=== PATIENT | male | born 1975 | race Caucasian/White ===

== ENCOUNTER 2016-08-07 08:29 | Emergency (ER) | payer OTHER ==
[~2016-08-07] VITALS: Ht 167.6 cm; Wt 66.0 kg
[~2016-08-07 08:29] MED LIST: LAXATIVE OTC; LORA10TA7 PO; VARE1 PO
[2016-08-07 08:33] VITALS: BP 116/60; PULSE 67; RESP 17; TEMP 97.8; O2SAT 98
[2016-08-07] MEDS ORDERED: SODIUM CHLOR 0.9% 1000 ML INJ 1,000 ML IV SCH (08:49)
[2016-08-07] MEDS ORDERED: ONDANSETRON HCL 4 MG/2 ML VIAL IVP ONE (09:00)
[2016-08-07] MEDS ORDERED: MORPHINE SULFATE 4 MG/ML INJ IV PUSH ONE (09:00)
[2016-08-07] MEDS ORDERED: SODIUM CHLORIDE 0.9% FLUSH 10 ML FLUSH IV FLUSH PRN (09:00)
[2016-08-07 09:37] LABS: AUTOMATED NEUTROPHIL # 12.1 TH/MM3 (1.8-7.7); BASOPHIL % 0.3 % (0.0-2.0); EOSINOPHIL % 0.1 % (0.0-4.0); HEMATOCRIT 47.6 % (39.0-51.0); HEMO FLAGS DIFF FINAL; LYMPHOCYTE # 2.2 TH/MM3 (1.0-4.8); MEAN CELL VOLUME 92.6 FL (80.0-100.0); MEAN CORPUSCULAR HEMOGLOBIN 31.4 PG (27.0-34.0); MEAN CORPUSCULAR HGB CONC 33.9 % (32.0-36.0); MONO % 8.6 % (0.0-8.0); PLATELET COUNT 249 TH/MM3 (150-450); RED BLOOD COUNT 5.14 MIL/MM3 (4.50-5.90); RED CELL DISTRIBUTION WIDTH 12.4 % (11.6-17.2); WHITE BLOOD COUNT 15.7 TH/MM3 (4.0-11.0)
[2016-08-07 09:39] LABS: BLOOD, URINE SMALL (NEG); GLUCOSE,URINE NEG (NEG); KETONE, URINE NEG (NEG); MUCUS URINE FEW /lpf (OCC); NITRITE,URINE NEG (NEG); PH, URINE 5.5 (5.0-8.5); URINE COLOR YELLOW (YELLW/STRAW)
[2016-08-07 09:40] LABS: COMMENT (UR) CULT NOT INDICATED; CULTURE IF INDICATED CULT NOT INDICATED
[2016-08-07 09:53] VITALS: O2SAT 99
[2016-08-07] MEDS ORDERED: VERA240T16 PO (09:57)
[2016-08-07 09:58] LABS: ANION GAP 9 MEQ/L (5-15); AST (GOT) 36 U/L (15-37); BICARBONATE 25.2 MEQ/L (21.0-32.0); BLOOD UREA NITROGEN 19 MG/DL (7-18); CHLORIDE 103 MEQ/L (98-107); GLOMERULAR FILTRATION RATE 57 ML/MIN (>89); POTASSIUM 5.2 MEQ/L (3.5-5.1); SODIUM (NA) 137 MEQ/L (136-145)
[2016-08-07 10:00] LABS: ALKALINE PHOSPHATASE 101 U/L (45-117); ALT (GPT) 51 U/L (12-78); TOTAL BILIRUBIN ADULT 0.8 MG/DL (0.2-1.0)
[2016-08-07 10:04] VITALS: BP 123/72; PULSE 50; RESP 18; O2SAT 97
--- NOTE | 2016-08-07 10:08 | PD ---
HPI Chief Complaint: Abdominal Pain Time Seen by Provider: 08:46 Travel History International Travel<30 days: No Contact w/Intl Traveler<30days: No Traveled to known affect area: No History of Present Illness HPI Patient is a pleasant 40-year-old male with previous appendectomy presents the emergency department with complaint of abdominal pain. Starting last night at approximately 10 PM patient noticed right sided abdominal pain. This is greatest right upper quadrant. Radiates slightly into the back. Patient states that it feels similar to when he had appendicitis. He states he cannot find a comfortable position. He had one episode of emesis this morning, no associated nausea. Patient denies any urinary symptoms, bowel symptoms. No history of hepatobiliary pathology, pancreatitis, ureterolithiasis. Patient states that the bumps in the road here bothered him. PFSH Past Medical History Cardiovascular Problems: Yes (HBP) Past Surgical History Appendectomy: Yes Other Surgery: Yes (VASECTOMY) Social History Alcohol Use: No Tobacco Use: No Substance Use: Yes (MARIJUANA OCCASSIONALLY) Allergies-Medications (Allergen,Severity, Reaction): Coded Allergies: No Known Allergies (Verified Allergy, Mild, 06/20/07) Reported Meds & Prescriptions Reported Meds & Active Scripts Active Reported Verapamil SR (Verapamil HCl) 240 Mg Tab 240 Mg PO BID Review of Systems Except as stated in HPI: all other systems reviewed are Neg Physical Exam Narrative GENERAL: Uncomfortable appearing male holding right side abdomen SKIN: Focused skin assessment warm/dry. HEAD: Normocephalic. EYES: Pupils equal and round. No scleral icterus. No injection or drainage. ENT: No nasal bleeding or discharge. Mucous membranes pink and moist. NECK: Supple CARDIOVASCULAR: Regular rate and rhythm. RESPIRATORY: No accessory muscle use. Clear to auscultation. Breath sounds equal bilaterally. GASTROINTESTINAL: Abdomen soft, right upper quadrant and right sided CVA tenderness without rebound or guarding MUSCULOSKELETAL: Normal gait NEUROLOGICAL: Awake and alert. Normal speech. PSYCHIATRIC: Appropriate mood and affect; insight and judgment normal. Data Data Last Documented VS Vital Signs Date Time Temp Pulse Resp B/P Pulse Ox O2 Delivery O2 Flow Rate FiO2 08/07/16 10:04 50 18 123/72 97 Room Air 08/07/16 08:33 97.8 Orders Complete Blood Count With Diff (08/07/16 08:49) Comprehensive Metabolic Panel (08/07/16 08:49) Lipase (4/24/17 08:49) Iv Access Insert/Monitor (08/07/16 08:49) Ecg Monitoring (08/07/16 08:49) Oximetry (08/07/16 08:49) Morphine Inj (Morphine Inj) (08/07/16 09:00) Ondansetron Inj (Zofran Inj) (08/07/16 09:00) Sodium Chlor 0.9% 1000 Ml Inj (Ns 1000 M (08/07/16 08:49) Sodium Chloride 0.9% Flush (Ns Flush) (08/07/16 09:00) Ed Poc Ultrasound (08/07/16 08:49) Urinalysis - C+S If Indicated (08/07/16 08:57) Ct Abd/Pel W/O Iv Contrast (08/07/16 08:57) Morphine Inj (Morphine Inj) (08/07/16 10:15) Oxycodone-Acetamin 5-325 Mg (Percocet (08/07/16 10:30) Labs Laboratory Tests Test 08/07/16 09:12 White Blood Count 15.7 TH/MM3 Red Blood Count 5.14 MIL/MM3 Hemoglobin 16.1 GM/DL Hematocrit 47.6 % Mean Corpuscular Volume 92.6 FL Mean Corpuscular Hemoglobin 31.4 PG Mean Corpuscular Hemoglobin 33.9 % Concent Red Cell Distribution Width 12.4 % Platelet Count 249 TH/MM3 Mean Platelet Volume 9.0 FL Neutrophils (%) (Auto) 77.0 % Lymphocytes (%) (Auto) 14.0 % Monocytes (%) (Auto) 8.6 % Eosinophils (%) (Auto) 0.1 % Basophils (%) (Auto) 0.3 % Neutrophils # (Auto) 12.1 TH/MM3 Lymphocytes # (Auto) 2.2 TH/MM3 Monocytes # (Auto) 1.4 TH/MM3 Eosinophils # (Auto) 0.0 TH/MM3 Basophils # (Auto) 0.0 TH/MM3 CBC Comment DIFF FINAL Differential Comment Urine Color YELLOW Urine Turbidity CLEAR Urine pH 5.5 Urine Specific [place] 1.012 Urine Protein NEG mg/dL Urine Glucose (UA) NEG mg/dL Urine Ketones NEG mg/dL Urine Occult Blood SMALL Urine Nitrite NEG Urine Bilirubin NEG Urine Urobilinogen LESS THAN 2.0 MG/DL Urine Leukocyte Esterase NEG Urine RBC 2 /hpf Urine WBC 1 /hpf Urine Mucus FEW /lpf Microscopic Urinalysis Comment CULT NOT INDICATED Sodium Level 137 MEQ/L Potassium Level 5.2 MEQ/L Chloride Level 103 MEQ/L Carbon Dioxide Level 25.2 MEQ/L Anion Gap 9 MEQ/L Blood Urea Nitrogen 19 MG/DL Creatinine 1.39 MG/DL Estimat Glomerular Filtration 57 ML/MIN Rate Random Glucose 97 MG/DL Calcium Level 9.6 MG/DL Total Bilirubin 0.8 MG/DL Aspartate Amino Transf 36 U/L (AST/SGOT) Alanine Aminotransferase 51 U/L (ALT/SGPT) Alkaline Phosphatase 101 U/L Total Protein 8.3 GM/DL Albumin 4.7 GM/DL Lipase 55 U/L MDM Medical Decision Making Medical Screen Exam Complete: Yes Emergency Medical Condition: Yes Medical Record Reviewed: Yes Differential Diagnosis 40-year-old male with history of previous appendectomy here with right sided flank pain since last night with episode of emesis. The right sided upper quadrant and CVA tenderness on exam. Differential includes hepatobiliary pathology, ureterolithiasis, pancreatitis, right sided diverticulitis or colitis. Narrative Course Patient placed on monitor, IV established and blood obtained. Bedside ultrasound showing hydronephrosis on the right. Patient given morphine, Zofran , IV fluids. CBC, CMP, lipase, urinalysis obtained and notable for small amount of blood. BUN 19, creatinine 1.39. WBC 15.7. CT abdomen and pelvis showed a 2 mm stone in the right ureterovesicular junction with mild hydronephrosis. Patient given additional morphine, Percocet. [place] improved and discharged home with symptomatic management. Procedures Procedure Narrative Patient consented to bedside ultrasound. Curvilinear probe used in the right upper quadrant and right flank revealing evidence of hydronephrosis but the gallbladder itself appears unremarkable with no evidence of stone, wall thickening, pericholecystic fluid. Diagnosis Primary Impression: Ureterolithiasis Referrals: Ermias Rdz MD call for appointment Additional Instructions: Nausea and pain medications as needed. Follow-up with urologist as discussed. Med/Other Pt SpecificInfo: Prescription(s) given Scripts Ondansetron Odt (Zofran Odt)8 Mg Tab8 Mg SL Q8H PRN (NAUSEA OR VOMITING) #10 TAB Ref 0 Prov:Elissa Wellington MD 08/07/16 Oxycodone-Acetaminophen (Percocet)5-325 mg Tab1-2 Tab PO Q4H PRN (PAIN) #25 TAB Ref 0 Prov:Elissa Wellington MD 08/07/16 Disposition: 01 DISCHARGE HOME Condition: Stable Elissa Wellington MD Aug 07, 2016 10:08
--- NOTE | 2016-08-07 10:11 | RADRPT ---
EXAM DATE/TIME: 08/07/2016 09:45 [facility] COMPARISON: No previous studies available for comparison. INDICATIONS : Patient has right lower quadrant pain with nausea since last night. ORAL CONTRAST: No oral contrast ingested. RADIATION DOSE: 5.47 CTDIvol (mGy) MEDICAL HISTORY : Cardiovascular disease. SURGICAL HISTORY : ENCOUNTER: Initial ACUITY: 1 day PAIN SCALE: 4/10 LOCATION: Right upper quadrant TECHNIQUE: Volumetric scanning of the abdomen and pelvis was performed. Using automated exposure control and ad justment of the mA and/or kV according to patient size, radiation dose was kept as low as reasonably achievable to obtain optimal diagnostic quality images. FINDINGS: LOWER LUNGS: The visualized lower lungs are clear. LIVER: Homogeneous density without lesion. There is no dilation of the biliary tree. No calcified gallston es. SPLEEN: Normal size without lesion. PANCREAS: Within normal limits. KIDNEYS: Normal in size and shape. There are tiny 1 mm nonobstructing bilateral renal calculi. There is mild right hydronephrosis with mild prominence of portions of the right ureter. There is a distal right ur eteral calculus at the level of the ureterovesicular junction. This measures 2 mm in size. ADRENAL GLANDS: Within normal limits. VASCULAR: There is no aortic aneurysm. BOWEL/MESENTERY: The stomach, small bowel, and colon demonstrate no acute abnormality. There is no free intraperitone al air or fluid. ABDOMINAL WALL: Within normal limits. RETROPERITONEUM: There is no lymphadenopathy. BLADDER: No wall thickening or mass. REPRODUCTIVE: Within normal limits. INGUINAL: There is no lymphadenopathy or hernia. MUSCULOSKELETAL: Within normal limits for patient age. CONCLUSION: 1. Distal right ureteral calculus at the level of the ureterovesicular junction measuring 2 mm in si ze with mild right hydronephrosis. 2. Tiny bilateral renal calculi. Michael Damon MD on August 07, 2016 at 10:06 Board Certified Radiologist. This report was verified electronically.
[2016-08-07] MEDS ORDERED: MORPHINE SULFATE 8 MG/ML INJ IV PUSH ONE (10:15)
[2016-08-07] MEDS ORDERED: PERC5TAB12 PO (10:25)
[2016-08-07] MEDS ORDERED: ZOFR8TAB4 SL (10:25)
[2016-08-07] MEDS ORDERED: oxyCODONE/ACETAMINOPHEN 5 MG/325 MG TAB PO ONE (10:30)
[2016-08-07 11:10] VITALS: BP 149/85
== END 2016-08-07 11:28 | disposition home or self-care (01) ==
LOC: NEPE 08:29
DX: N20.1 Calculus of ureter (principal); N20.0 Calculus of kidney
CPT/HCPCS: 74176; 80053; 81001; 83690; 85025; 96374; 96375; 96376; 99284; J2270; J2405; J7030

== ENCOUNTER 2017-01-24 10:42 | Inpatient (IN) | payer OTHER ==
[~2017-01-24] VITALS: Ht 165.1 cm; Wt 70.0 kg
[~2017-01-24 10:42] MED LIST changes: -LAXATIVE OTC; -LORA10TA7 PO; +PERC5TAB12 PO; -VARE1 PO; +VERA240T16 PO; +ZOFR8TAB4 SL
[2017-01-24 10:52] VITALS: BP 118/57; PULSE 59; RESP 20
[2017-01-24] MEDS ORDERED: HYDROmorphone HCL PF 1 MG/ML VIAL IV PUSH ONE ×3 (11:00→15:15)
[2017-01-24] MEDS ORDERED: ONDANSETRON HCL 4 MG/2 ML VIAL IV PUSH ONE (11:00)
[2017-01-24] MEDS ORDERED: ceFAZolin 2 GM PREMIX 50 ML IV ONE (11:00)
[2017-01-24] MEDS ORDERED: GENTAMICIN INJ 80 MG in SODIUM CHLORIDE 0.9% INJ 100 ML IV ONE (11:00)
[2017-01-24] MEDS ORDERED: SODIUM CHLORIDE 0.9% FLUSH 10 ML FLUSH IVF PRN (11:00)
--- NOTE | 2017-01-24 11:05 | PD ---
HPI Chief Complaint: hand pain, foot pain. Time Seen by Provider: 10:50 Travel History International Travel<30 days: No Contact w/Intl Traveler<30days: No History of Present Illness HPI patient is a 41-year-old male presents emergency department for evaluation of deep laceration to left long finger as well as lacerations to the left foot. Patient states he was cleaning a large outdoor fountain when part of the found collapsed hit him in the chest and then ultimately landed on his left foot. He states he fell off the found approximately 6 feet onto the ground. Denies any head neck back injury. Symptoms started just prior to arrival, severe pain, nonradiating, associated with fall, minimally better after morphine he received in the ambulance on the way here. PFSH Past Medical History Cardiovascular Problems: Yes (HBP) Past Surgical History Appendectomy: Yes Other Surgery: Yes (VASECTOMY) Social History Alcohol Use: No Tobacco Use: Yes Substance Use: Yes (MARIJUANA OCCASSIONALLY) Allergies-Medications (Allergen,Severity, Reaction): Coded Allergies: No Known Allergies (Verified , 01/24/17) Reported Meds & Prescriptions Reported Meds & Active Scripts Active Reported Verapamil SR (Verapamil HCl) 240 Mg Tab 240 Mg PO BID Review of Systems Except as stated in HPI: all other systems reviewed are Neg Physical Exam Narrative GENERAL: Well-developed well-nourished 41-year-old male in some discomfort. SKIN: Focused skin assessment warm/dry. Patient has a deep avulsion injury on the palmar aspect of the the left long finger at the crease between the proximal phalanx and the metacarpal. There is bone exposed. There are several abrasions on the anterior chest wall without contusion or laceration. HEAD: Atraumatic. Normocephalic. EYES: Pupils equal and round. No scleral icterus. No injection or drainage. ENT: No nasal bleeding or discharge. Mucous membranes pink and moist. NECK: Trachea midline. No JVD. CARDIOVASCULAR: Regular rate and rhythm. No murmur appreciated. RESPIRATORY: No accessory muscle use. Clear to auscultation. Breath sounds equal bilaterally. GASTROINTESTINAL: Abdomen soft, non-tender, nondistended. Hepatic and splenic margins not palpable. MUSCULOSKELETAL: No clubbing. No edema. The patient's finger is locked in extension and he is unable to flex at the PIP or the DIP. He has brisk cap refill distally. In all 10 digits of the upper extremities. No injury at the wrists elbows shoulders. No midline CT or L-spine tenderness. Pelvis is stable. On the dorsal aspect of the left foot, there is an obvious fracture of what appears to be the middle phalanx on the middle toe. There are some also a laceration between the fourth and fifth metatarsals and the third and fourth metatarsals both of which are through the dermis. NEUROLOGICAL: Awake and alert. No obvious cranial nerve deficits. Motor grossly within normal limits. Normal speech. PSYCHIATRIC: Appropriate mood and affect; insight and judgment normal. Data Data Last Documented VS Vital Signs Date Time Temp Pulse Resp B/P (MAP) Pulse Ox O2 Delivery O2 Flow Rate FiO2 01/24/17 12:25 98.1 59 22 133/73 (93) 100 Room Air Orders Orders Ct Thorax/ Chest W Iv Contrast (01/24/17 ) Ct Abd/Pel W Iv Contrast(Rout) (01/24/17 ) Hand, Complete ([id number]) (01/24/17 ) Foot, Complete ([id number]) (01/24/17 ) Electrocardiogram (01/24/17 10:56) Basic Metabolic Panel (Bmp) (01/24/17 10:56) Complete Blood Count With Diff (01/24/17 10:56) Prothrombin Time / Inr (Pt) (01/24/17 10:56) Act Partial Throm Time (Ptt) (01/24/17 10:56) Chest, Single Ap (01/24/17 10:56) Ecg Monitoring (01/24/17 10:56) Iv Access Insert/Monitor (01/24/17 10:56) Oximetry (01/24/17 10:56) Oxygen Administration (01/24/17 10:56) Sodium Chloride 0.9% Flush (Ns Flush) (01/24/17 11:00) Hydromorphone Pf Inj (Dilaudid Pf Inj) (01/24/17 11:00) Ondansetron Inj (Zofran Inj) (01/24/17 11:00) Cefazolin 2 Gm Premix (Ancef 2 Gm Premix (01/24/17 11:00) Gentamicin Inj (Gentamicin Inj) (01/24/17 11:00) Ct Brain W/O Iv Contrast(Rout) (01/24/17 ) Ct Cerv Spine W/O Contrast (01/24/17 ) Fzyi-Rdn-Gnlyhf (Booster) Inj (Boostrix (01/24/17 11:15) Diet Npo (01/24/17 Lunch) Hydromorphone Pf Inj (Dilaudid Pf Inj) (01/24/17 12:30) Iohexol 350 Inj (Omnipaque 350 Inj) (01/24/17 12:18) Labs Laboratory Tests Test 01/24/17 11:30 White Blood Count 11.4 TH/MM3 Red Blood Count 4.70 MIL/MM3 Hemoglobin 14.7 GM/DL Hematocrit 44.6 % Mean Corpuscular Volume 94.8 FL Mean Corpuscular Hemoglobin 31.3 PG Mean Corpuscular Hemoglobin Concent 33.0 % Red Cell Distribution Width 12.5 % Platelet Count 231 TH/MM3 Mean Platelet Volume 8.8 FL Neutrophils (%) (Auto) 59.2 % Lymphocytes (%) (Auto) 31.9 % Monocytes (%) (Auto) 7.0 % Eosinophils (%) (Auto) 1.2 % Basophils (%) (Auto) 0.7 % Neutrophils # (Auto) 6.7 TH/MM3 Lymphocytes # (Auto) 3.6 TH/MM3 Monocytes # (Auto) 0.8 TH/MM3 Eosinophils # (Auto) 0.1 TH/MM3 Basophils # (Auto) 0.1 TH/MM3 CBC Comment DIFF FINAL Differential Comment Prothrombin Time 11.1 SEC Prothromb Time International Ratio 1.0 RATIO Activated Partial Thromboplast Time 24.6 SEC Blood Urea Nitrogen 16 MG/DL Creatinine 0.98 MG/DL Random Glucose 97 MG/DL Calcium Level 8.5 MG/DL Sodium Level 138 MEQ/L Potassium Level 3.8 MEQ/L Chloride Level 106 MEQ/L Carbon Dioxide Level 24.1 MEQ/L Anion Gap 8 MEQ/L Estimat Glomerular Filtration Rate 84 ML/MIN MDM Medical Decision Making Medical Screen Exam Complete: Yes Emergency Medical Condition: Yes Differential Diagnosis Tendon injury, Vascular injury, Laceration injury, foot fracture, multiple trauma, chest injury. Narrative Course Patient roomed emergency department, does have some chest wall injury as well as a significant avulsion probable near amputation of the left long finger, was discussed immediately with Dr. Buchanan and we sent images of the laceration to him, he is planning for exploration this afternoon is waiting for OR time. The patient does have Refill brisk on arrival. Patient does not have any fracture, suspect hyperextension injury leading to soft tissue injury. Patient was reassessed several times by me and continued to have Refill which was the same as the remaining fingers. Patient also has fracture of the metatarsal on the middle digit of the left foot, as crush injury to the left phalanx. CT head neck chest abdomen and pelvis are negative. Patient was ultimately discussed with Dr. Kapoor for admission per Dr. Erasmo Ortega recommendations. At 1530 Dr. Buchanan arrived and he believes the patient may have disrupted both digital arteries to the left finger and recommends emergent transfer to [facility]. D/W Dr. Mata who accepted ER to ER. Diagnosis Primary Impression: Tendon laceration Additional Impression: Foot fracture, left Disposition: 70 TRANSFER TO OTHER FACILITY Condition: Stable Terrell Gonzalez MD Jan 24, 2017 11:05
[2017-01-24] MEDS ORDERED: DIPHTH/TETANUS/ACEL PERTUSSIS (BOOSTER) 0.5 ML VIAL/PFS IM ONE (11:15)
--- NOTE | 2017-01-24 11:43 | RADRPT ---
EXAM DATE/TIME: 01/24/2017 11:21 [facility] COMPARISON: No previous studies available for comparison. INDICATIONS : Chest pain. MEDICAL HISTORY : None. SURGICAL HISTORY : None. ENCOUNTER: Initial ACUITY: 1 day PAIN SCORE: 5/10 LOCATION: Left chest FINDINGS: A single view of the chest demonstrates the lungs to be symmetrically aerated without evidence of mas s, infiltrate or effusion. The cardiomediastinal contours are unremarkable. Osseous structures are intact. CONCLUSION: No acute disease. Raul Allison MD FACR on January 24, 2017 at 11:42 Board Certified Radiologist. This report was verified electronically.
--- NOTE | 2017-01-24 11:44 | RADRPT ---
EXAM DATE/TIME: 01/24/2017 11:23 [facility] COMPARISON: No previous studies available for comparison. INDICATIONS : Left hand laceration, dropped fountain on hand. MEDICAL HISTORY : None. SURGICAL HISTORY : None. ENCOUNTER: Initial ACUITY: 1 day PAIN SCORE: 10/10 LOCATION: Left hand, third digit FINDINGS: Laceration seen involving the third finger radiopaque foreign material without fracture. CONCLUSION: Laceration, radiopaque foreign material, negative for fracture. Raul Allison MD FACR on January 24, 2017 at 11:42 Board Certified Radiologist. This report was verified electronically.
--- NOTE | 2017-01-24 11:47 | RADRPT ---
EXAM DATE/TIME: 01/24/2017 11:25 [facility] COMPARISON: No previous studies available for comparison. INDICATIONS : Left foot pain, dropped fountain on foot. MEDICAL HISTORY : None. SURGICAL HISTORY : None. ENCOUNTER: Initial ACUITY: 1 day PAIN SCORE: 10/10 LOCATION: Left dorsal foot FINDINGS: Common fracture middle phalanx third toe. Second and fourth toes are intact. Fracture of the distal third metatarsal. CONCLUSION: Fracture of third toe and third metatarsal. Raul Allison MD FACR on January 24, 2017 at 11:45 Board Certified Radiologist. This report was verified electronically.
[2017-01-24 11:48] LABS: AUTOMATED NEUTROPHIL # 6.7 TH/MM3 (1.8-7.7); BASOPHIL # 0.1 TH/MM3 (0-0.2); BASOPHIL % 0.7 % (0.0-2.0); EOSINOPHIL # 0.1 TH/MM3 (0-0.4); EOSINOPHIL % 1.2 % (0.0-4.0); HEMATOCRIT 44.6 % (39.0-51.0); HEMO FLAGS DIFF FINAL; LYMPH % 31.9 % (9.0-44.0); LYMPHOCYTE # 3.6 TH/MM3 (1.0-4.8); MEAN CELL VOLUME 94.8 FL (80.0-100.0); MEAN CORPUSCULAR HEMOGLOBIN 31.3 PG (27.0-34.0); NEUT % 59.2 % (16.0-70.0); PLATELET COUNT 231 TH/MM3 (150-450); RED CELL DISTRIBUTION WIDTH 12.5 % (11.6-17.2); WHITE BLOOD COUNT 11.4 TH/MM3 (4.0-11.0)
--- NOTE | 2017-01-24 11:54 | RADRPT ---
EXAM DATE/TIME: 01/24/2017 11:44 [facility] COMPARISON: No previous studies available for comparison. INDICATIONS : Large object fell on patient RADIATION DOSE: 48.24 CTDIvol (mGy) MEDICAL HISTORY : Cardiovascular disease. SURGICAL HISTORY : Appendectomy. ENCOUNTER: Initial ACUITY: 1 day PAIN SCALE: 3/10 LOCATION: cranial TECHNIQUE: Multiple contiguous axial images were obtained of the head. Using automated exposure control and adj ustment of the mA and/or kV according to patient size, radiation dose was kept as low as reasonably a chievable to obtain optimal diagnostic quality images. DICOM format image data is available electro nically for review and comparison. FINDINGS: CEREBRUM: The ventricles are normal for age. No evidence of midline shift, mass lesion, hemorrhage or acute in farction. No extra-axial fluid collections are seen. POSTERIOR FOSSA: The cerebellum and brainstem are intact. The 4th ventricle is midline. The cerebellopontine angle i s unremarkable. EXTRACRANIAL: The visualized portion of the orbits is intact. SKULL: The calvaria is intact. No evidence of skull fracture. CONCLUSION: Negative for an acute process. Raul Allison MD FACR on January 24, 2017 at 11:51 Board Certified Radiologist. This report was verified electronically.
[2017-01-24 12:04] LABS: APTT (PATIENT) 24.6 SEC (24.3-30.1); BICARBONATE 24.1 MEQ/L (21.0-32.0); POTASSIUM 3.8 MEQ/L (3.5-5.1); PROTHROMBIN TIME - PATIENT 11.1 SEC (9.8-11.6)
--- NOTE | 2017-01-24 12:15 | RADRPT ---
EXAM DATE/TIME: 01/24/2017 11:44 [facility] COMPARISON: No previous studies available for comparison. INDICATIONS : Large object fell on patient. RADIATION DOSE: 21.50 CTDIvol (mGy) MEDICAL HISTORY : Cardiovascular disease. SURGICAL HISTORY : Appendectomy. ENCOUNTER: Initial ACUITY: 1 day PAIN SCALE: 3/10 LOCATION: neck TECHNIQUE: Volumetric scanning of the cervical spine was performed. Multiplanar reconstructions i n the sagittal, coronal and oblique axial planes were performed. Using automated exposure control a nd adjustment of the mA and/or kV according to patient size, radiation dose was kept as low as reason ably achievable to obtain optimal diagnostic quality images. DICOM format image data is available e lectronically for review and comparison. FINDINGS: VERTEBRAE: Normal vertebral body height. ALIGNMENT: No evidence of subluxation. C2-C3: The bony spinal canal is normal in size. No evidence of disc bulge or herniation. The neura l foramina are bilaterally patent. C3-C4: The bony spinal canal is normal in size. No evidence of disc bulge or herniation. The neura l foramina are bilaterally patent. C4-C5: The bony spinal canal is normal in size. No evidence of disc bulge or herniation. The neura l foramina are bilaterally patent. C5-C6: The bony spinal canal is normal in size. No evidence of disc bulge or herniation. The neura l foramina are bilaterally patent. C6-C7: The bony spinal canal is normal in size. No evidence of disc bulge or herniation. The neura l foramina are bilaterally patent. C7-T1: The bony spinal canal is normal in size. No evidence of disc bulge or herniation. The neura l foramina are bilaterally patent. CONCLUSION: Negative for acute traumatic injury. Raul Allison MD FACR on January 24, 2017 at 12:12 Board Certified Radiologist. This report was verified electronically.
--- NOTE | 2017-01-24 12:17 | RADRPT ---
EXAM DATE/TIME: 01/24/2017 11:52 [facility] COMPARISON: No previous studies available for comparison. INDICATIONS : Large object fell on patient. IV CONTRAST: 85 cc Omnipaque 350 (iohexol) IV ; Cumulative dose for multiple exams. ORAL CONTRAST: No oral contrast ingested. RADIATION DOSE: 10/15 CTDIvol (mGy) ; Combined studies - Thorax/Abdomen/Pelvis MEDICAL HISTORY : Cardiovascular disease. SURGICAL HISTORY : Appendectomy. ENCOUNTER: Initial ACUITY: 1 day PAIN SCALE: 3/10 LOCATION: Abdomen TECHNIQUE: Volumetric scanning of the abdomen and pelvis was performed. Using automated exposure control and ad justment of the mA and/or kV according to patient size, radiation dose was kept as low as reasonably achievable to obtain optimal diagnostic quality images. DICOM format image data is available electro nically for review and comparison. FINDINGS: LOWER LUNGS: The visualized lower lungs are clear. LIVER: Homogeneous density without lesion. There is no dilation of the biliary tree. No calcified gallston es. SPLEEN: Normal size without lesion. PANCREAS: Within normal limits. KIDNEYS: Normal in size and shape. There is no mass, stone or hydronephrosis. 2 mm stone left kidney. ADRENAL GLANDS: Within normal limits. VASCULAR: There is no aortic aneurysm. BOWEL/MESENTERY: The stomach, small bowel, and colon demonstrate no acute abnormality. There is no free intraperitone al air or fluid. ABDOMINAL WALL: Within normal limits. RETROPERITONEUM: There is no lymphadenopathy. BLADDER: No wall thickening or mass. REPRODUCTIVE: Within normal limits. INGUINAL: There is no lymphadenopathy or hernia. MUSCULOSKELETAL: Within normal limits for patient age. CONCLUSION: Negative for acute traumatic injury. Raul Allison MD FACR on January 24, 2017 at 12:14 Board Certified Radiologist. This report was verified electronically.
[2017-01-24] MEDS ORDERED: IOHEXOL 350 MG/ML 10 ML VIAL (for RAD DIAG) IVCONTRAST ONE (12:18)
--- NOTE | 2017-01-24 12:22 | RADRPT ---
EXAM DATE/TIME: 01/24/2017 11:52 [facility] COMPARISON: No previous studies available for comparison. INDICATIONS : Large object fell on patient. IV CONTRAST: 85 cc Omnipaque 350 (iohexol) IV ; Cumulative dose for multiple exams. RADIATION DOSE: 7.02 CTDIvol (mGy) ; Combined studies - Thorax/Abdomen/Pelvis MEDICAL HISTORY : Cardiovascular disease. SURGICAL HISTORY : Arthroscopy. ENCOUNTER: Initial ACUITY: 1 day PAIN SCALE: 3/10 LOCATION: chest TECHNIQUE: Volumetric scanning of the chest was performed. Using automated exposure control and adjustment of t he mA and/or kV according to patient size, radiation dose was kept as low as reasonably achievable to obtain optimal diagnostic quality images. DICOM format image data is available electronically for review and comparison. Follow-up recommendations for detected pulmonary nodules are based at a minimum on nodule size and pa tient risk factors according to Fleischner Society Guidelines. FINDINGS: LUNGS: There is no consolidation or pneumothorax. No concerning pulmonary nodule is visualized. PLEURA: There is no pleural thickening or pleural effusion. MEDIASTINUM: The heart and great vessels demonstrate no acute abnormality. There is no mediastinal or hilar lymph adenopathy. AXILLAE: Within normal limits. No lymphadenopathy. SKELETAL: Within normal limits for patient age. MISCELLANEOUS: The visualized upper abdominal organs demonstrate no acute abnormality. CONCLUSION: Negative for acute traumatic injury. Raul Allison MD FACR on January 24, 2017 at 12:20 Board Certified Radiologist. This report was verified electronically.
[2017-01-24 12:25] VITALS: BP 133/73; PULSE 59; RESP 22; TEMP 98.1; O2SAT 100
--- NOTE | 2017-01-24 14:24 | PD.CONS ---
History of Present Illness Service Podiatry Consult Requested By ED Reason for Consult L foot crush injury, possible open fracture/tendon exposed Primary Care Physician Carmelo Euceda MD Diagnoses: History of Present Illness 41-year-old male presents emergency department with L hand injury and crush injury and deep laceration to left dorsal foot. Patient states that this occurred around 10 a.m. He was cleaning a large outdoor fountain when part of the found collapsed hit him in the chest and then ultimately landed on his left foot. He states he fell off the fountain approximately 6 feet onto the ground. Denies any head neck back injury. Symptoms started just prior to arrival, severe pain, nonradiating, associated with fall, minimally better after morphine he received in the ambulance on the way here. Past Family Social History Allergies: Coded Allergies: No Known Allergies (Verified , 01/24/17) Past Medical History High blood pressure Past Surgical History Vasectomy Appendectomy Active Ordered Medications Current Medications Medications (Trade) Dose Ordered Sig/Amparo Route Start Time Stop Time Status Last Admin (NS Flush) 2 ml UNSCH PRN IVF 01/24/17 11:00 Social History Occasional marijuana Physical Exam Vital Signs Vital Signs Date Time Temp Pulse Resp B/P (MAP) Pulse Ox O2 Delivery O2 Flow Rate FiO2 01/24/17 12:25 98.1 59 22 133/73 (93) 100 Room Air 01/24/17 11:42 100 Room Air 01/24/17 10:52 59 20 118/57 (77) Physical Exam L dorsal foot with laceration at level of 4th MTP joint laterally, as well as small laceration to lateral base of 3rd toe. Not able to see bone with examination of the wound at this time, but examination is painful. Tendon visible at dorsal 4th MTP joint area. L 3rd toe flaccid distally, but with capillary refill and warm temperature to digit. Appears viable at this time Pulses palpable. Compartments soft. Sensation diminished to digits to light touch Laboratory Laboratory Tests Test 01/24/17 11:30 White Blood Count 11.4 Red Blood Count 4.70 Hemoglobin 14.7 Hematocrit 44.6 Mean Corpuscular Volume 94.8 Mean Corpuscular Hemoglobin 31.3 Mean Corpuscular Hemoglobin Concent 33.0 Red Cell Distribution Width 12.5 Platelet Count 231 Mean Platelet Volume 8.8 Neutrophils (%) (Auto) 59.2 Lymphocytes (%) (Auto) 31.9 Monocytes (%) (Auto) 7.0 Eosinophils (%) (Auto) 1.2 Basophils (%) (Auto) 0.7 Neutrophils # (Auto) 6.7 Lymphocytes # (Auto) 3.6 Monocytes # (Auto) 0.8 Eosinophils # (Auto) 0.1 Basophils # (Auto) 0.1 CBC Comment DIFF FINAL Differential Comment Prothrombin Time 11.1 Prothromb Time International Ratio 1.0 Activated Partial Thromboplast Time 24.6 Blood Urea Nitrogen 16 Creatinine 0.98 Random Glucose 97 Calcium Level 8.5 Sodium Level 138 Potassium Level 3.8 Chloride Level 106 Carbon Dioxide Level 24.1 Anion Gap 8 Estimat Glomerular Filtration Rate 84 Result Diagram: 01/24/17 1130 01/24/17 1130 Imaging Last 72 hours Impressions Chest X-Ray 01/24/17 1056 Signed Impressions: Service Date/Time: Tuesday, January 24, 2017 11:21 - CONCLUSION: No acute disease. Raul Allison MD FACR Head CT 01/24/17 0000 Signed Impressions: Service Date/Time: Tuesday, January 24, 2017 11:44 - CONCLUSION: Negative for an acute process. Raul Allison MD FACR Hand X-Ray 01/24/17 0000 Signed Impressions: Service Date/Time: Tuesday, January 24, 2017 11:23 - CONCLUSION: Laceration , radiopaque foreign material, negative for fracture. Raul Allison MD FACR Foot X-Ray 01/24/17 0000 Signed Impressions: Service Date/Time: Tuesday, January 24, 2017 11:25 - CONCLUSION: Fracture of third toe and third metatarsal. Raul Allison MD FACR Chest CT 01/24/17 0000 Signed Impressions: Service Date/Time: Tuesday, January 24, 2017 11:52 - CONCLUSION: Negative for acute traumatic injury. Raul Allison MD FACR Cervical Spine CT 01/24/17 0000 Signed Impressions: Service Date/Time: Tuesday, January 24, 2017 11:44 - CONCLUSION: Negative for acute traumatic injury. Raul Allison MD FACR Abdomen/Pelvis CT 01/24/17 0000 Signed Impressions: Service Date/Time: Tuesday, January 24, 2017 11:52 - CONCLUSION: Negative for acute traumatic injury. Raul Allison MD FACR Assessment and Plan Assessment and Plan L foot crush injury, displaced L 3rd metatarsal neck fracture, displaced L middle phalanx 3rd toe comminuted fracture complicated laceration to tendon/bone dorsal L foot To OR for debridement/irrigation L foot with possible ORIF vs pinning of L 3rd metatarsal and toe and laceration repair with Dr Rodrigez NPO now Consented and patient surgical site marked Jag Ayala DPM Jan 24, 2017 14:24
--- NOTE | 2017-01-24 14:47 | EKG ---
Date Performed: 01/24/2017 Time Performed: 11:27:09 PTAGE: 41 years EKG: SINUS BRADYCARDIA BORDERLINE ECG NO PREVIOUS TRACING DOCTOR: Prashant Augustine Interpretating Date/Time 01/24/2017 14:46:47
[2017-01-24] MEDS ORDERED: NALOXONE HCL 0.4 MG/ML AMP IV PUSH PRN (15:15)
[2017-01-24] MEDS ORDERED: SODIUM CHLORIDE 0.9% FLUSH 10 ML FLUSH IV FLUSH PRN (15:15)
[2017-01-24] MEDS ORDERED: MAGNESIUM HYDROXIDE SUSP 30 ML CUP PO PRN (15:15)
[2017-01-24] MEDS ORDERED: LACTULOSE SYRUP 20 GM/30 ML CUP PO PRN (15:15)
[2017-01-24] MEDS ORDERED: ACETAMINOPHEN 325 MG TAB PO PRN (15:15)
[2017-01-24] MEDS ORDERED: BISACODYL 10 MG SUPP RECTAL PRN (15:15)
[2017-01-24] MEDS ORDERED: ONDANSETRON HCL 4 MG/2 ML VIAL IVP PRN (15:15)
[2017-01-24] MEDS ORDERED: SENNOSIDES 8.6 MG TAB PO PRN (15:15)
[2017-01-24] MEDS ORDERED: BUPIVACAINE HCL PF 0.5% 30 ML VIAL ONE (15:18)
[2017-01-24] MEDS ORDERED: LIDOCAINE HCL 1% 50 ML VIAL ONE (15:18)
[2017-01-24] MEDS ORDERED: GENTAMICIN SULFATE 80 MG/2 ML VIAL ONE (15:51)
[2017-01-24] MEDS ORDERED: BUPIVACAINE HCL PF 0.25% 30 ML VIAL ONE (15:52)
[2017-01-24] MEDS ORDERED: SODIUM CHLOR 0.9% 1000 ML INJ 1,000 ML IV SCH (16:00)
[2017-01-24 16:17] VITALS: BP 118/72; PULSE 65; RESP 22; TEMP 98.5; O2SAT 100
--- NOTE | 2017-01-24 17:13 | RADRPT ---
EXAM DATE/TIME: 01/24/2017 13:55 [facility] COMPARISON: No previous studies available for comparison. INDICATIONS : Right foot pain and abrasion on anterior side of foot. MEDICAL HISTORY : None. SURGICAL HISTORY : None. ENCOUNTER: Initial ACUITY: 1 day PAIN SCORE: 5/10 LOCATION: Right foot FINDINGS: Soft tissue swelling is present over the dorsum of the foot. There is no evidence of acute fracture. Bony mineralization is normal. CONCLUSION: 1. There is no evidence of acute fracture. Carmelo Mendoza MD on January 24, 2017 at 17:12 Board Certified Radiologist. This report was verified electronically.
--- NOTE | 2017-01-24 20:57 | MB ---
cc: SOCORROADAIR DATE OF CONSULTATION 01/24/2017 REASON FOR CONSULTATION Crush injury left middle finger. HISTORY OF PRESENT ILLNESS The patient is a 41-year-old left-hand dominant male who presented to the ED with complaints of crushing injury to the left middle finger and left foot. The patient states he was cleaning a large outdoor fountain when part of the fountain collapsed and collapsed on the patient and resulting in multiple injuries. The patient complains of laceration involving the left middle finger. He also complains of multiple lacerations including the left foot. He also complains of numbness of the left middle finger and states he is unable to feel the left middle finger. He denies any difficulty breathing. Denies any loss of consciousness. PHYSICAL EXAMINATION GENERAL: On examination the patient is alert, oriented times three. DIRECTED EXAMINATION: Examination of left hand reveals dressing in place. Examination after removal of dressing reveals laceration over the volar aspect of the proximal phalanx region and the PIP joint region with flap of skin and soft tissues elevated from the volar surface of the proximal phalanx and the PIP joint. The laceration also extends dorsally on to the PIP joint. The finger appears dusky. He has capillary refill which is through it, over the middle finger region. Pulse ox does not pickling drum operator any waveforms. The patient has no sensation distal to the laceration. Digital artery, clotted distal artery noted over the proximal aspect of the laceration. The laceration extends from ulnar to radial aspect almost to the PIP joint. The PIP joint is exposed on the volar aspect. There is no evidence of bleeding from the pulp on to pinprick. The patient has no active flexion of the PIP or the DIP joint. He has no sensation distal to the laceration. He has intact extension of the PIP joint. There is evidence of foreign body material within the soft tissues. The laceration measures about 5 cm and the edges appeared to be jagged. IMAGING STUDIES X-rays of left middle finger was reviewed, shows evidence of soft tissue defect along the volar aspect of the proximal phalanx and evidence of foreign body within the soft tissues of the volar aspect of the finger. No evidence of fracture noted. ASSESSMENT A 41-year-old male with crushing injury to the left middle finger proximal phalanx and PIP joint region with laceration of the flexor digitorum profundus, flexor digitorum superficialis, digital nerves and digital arteries. PLAN The patient does have a little bit of retained color of the pulp and delayed capillary refill. Pulse ox does not pickling drum operator waveforms from the pulp region. There is no evidence of bleeding from the pulp on pinprick. He likely has compromised circulation to the finger. He would benefit from transfer to a level I trauma center for possible revascularization and repair of the flexor tendons and digital nerves. The patient also has foot injury. Arrangements were being made to transfer the patient to [facility]. Adair Kemp MD SE/DONN /4:29 PM /8:43 PM
[2017-01-24] MEDS ORDERED: DOCUSATE SODIUM 50 MG/SENNA 8.6 MG TAB PO SCH (21:00)
[2017-01-24] MEDS ORDERED: SODIUM CHLORIDE 0.9% FLUSH 10 ML FLUSH IV FLUSH SCH (21:00)
== END 2017-01-24 17:12 | disposition short-term general hospital (02) | DRG 74 ==
LOC: HOR 10:42 → NEDA 12:25
PROVIDERS: ADMIT Hospitalist; ATTEND Hospitalist
DX: S64.493A Injury of digital nerve of left middle finger, initial encounter (principal); S96.822A Laceration of other specified muscles and tendons at ankle and foot level, left foot, initial encounter; S66.123A Laceration of flexor muscle, fascia and tendon of left middle finger at wrist and hand level, initial encounter; S65.513A Laceration of blood vessel of left middle finger, initial encounter; S92.332A Displaced fracture of third metatarsal bone, left foot, initial encounter for closed fracture; S92.522A Displaced fracture of middle phalanx of left lesser toe(s), initial encounter for closed fracture; S97.82XA Crushing injury of left foot, initial encounter; S67.193A Crushing injury of left middle finger, initial encounter; S61.223A Laceration with foreign body of left middle finger without damage to nail, initial encounter; S29.9XXA Unspecified injury of thorax, initial encounter; Z72.0 Tobacco use; W17.89XA Other fall from one level to another, initial encounter; W23.0XXA Caught, crushed, jammed, or pinched between moving objects, initial encounter; Y93.H9 Activity, other involving exterior property and land maintenance, building and construction
CPT/HCPCS: 70450; 71010; 71260; 72125; 73130; 73630; 74177; 80048; 85025; 85610; 85730; 90471; 90715; 93005; 96365; 96367; 96375; 96376; J0690; J1170; J1580; J2405; Q9967